=== PATIENT | female | born 1975 | race Caucasian/White ===

== ENCOUNTER 2016-05-11 01:37 | Inpatient (IN) | payer MEDICAID ==
[~2016-05-11] VITALS: Ht 165.1 cm; Wt 103.0 kg
--- NOTE | ~2016-05-11 | ECH ---
Transthoracic Echocardiography Report (TTE) Demographics Patient Name CHAVO CARMONA Date of Study 05/11/2016 F Patient Number [id number] Visit Number [id number] Date of 1975 Room Number 417 Accession Number [id number] Gender Female Age 41 year(s) Referring Anca Alarcon MD Sales Project Coordinator Vicki Herrera Physician Roscoe Tovar [facility] Physician Interpreting Ilya DINH Tax Auditor Physician Pranav Supervising Ordering Physician Anca Alarcon MD, MD/P Nurse Stress Internet Database Specialist Conclusions Contractility Score Summary At rest the following contractility abnormalities were noted: Hypokinesis of the Mid inferior, the Mid infero-lateral and the Basal inferior segments. Contractility of all other segments appeared normal. Summary Technically adequate exam. The estimated left ventricular ejection fraction is 55-60%. Mild concentric left ventricular hypertrophy. There is trivial aortic regurgitation by color Doppler. Recommendation The patient will be given the results of this study by the physician who ordered the exam. Procedure Type of Study TTE procedure:Echo Complete SF. Procedure Date Date: 05/11/2016 Start: 11:47 AM Technical Quality: Adequate visualization Indications:Chest pain, Hypertension, Diabetes and Coronary artery disease. Additional Indications:History of stent/KS Appropriate Use Criteria: 9 Height: 65 inches Weight: 227 pounds BSA: 2.09 m Rhythm: NSR HR: 73 bpm BP: 156/91 mmHg M-Mode/2D Measurements LV Diastolic Dimension: 5.01 cm LV Systolic Dimension: 3.78 cm LV Septum Diastolic: 1.02 cm LV PW Diastolic: 1.04 cm AO Root Dimension: 2.93 cm Cardiac Output: 4.4 l/min LA Dimension: 3.6 cm Cardiac Index: 2.11 l/min*m RV Diastolic Dimension: 3.51 cm LA volume index: 31 ml/m LVOT: 1.97 cm LVOT VTI: 19.79 cm RV Base: 3.3 cm LV Stroke volume: 60.29 ml RV Mid: 1.9 cm LV Stroke volume index: 28.85 ml/m TAPSE: 2.4 cm TDI-S': 11 cm/s Doppler Measurements AV Peak Velocity: 1.3 m/s MV Peak E-Wave: 0.9 m/s AV Peak Gradient: 6.76 mmHg MV Peak A-Wave: 0.79 m/s AV Mean Gradient: 3.89 mmHg MV E/A Ratio: 1.14 LVOT Peak Velocity: 0.95 m/s MV P1/2t: 60.1 msec AV Area (Continuity):2.54 cm MV Deceleration Time: 223.8 msec TR Velocity:2.52 m/s MV Area (PHT): 3.66 cm TR Gradient:25.4 mmHg PV Peak Velocity: 0.93 m/s Estimated RAP:5 mmHg PV Peak Gradient: 3.45 mmHg Estimated RVSP: 30 mmHg Estimated PASP: 30.4 mmHg E' Septal Velocity: 0.1 m/s A' Septal Velocity: 0.06 m/s E' Lateral Velocity: 0.08 m/s A' Lateral Velocity: 0.1 m/s RA Area: 10.39 cm Findings Left Ventricle The left ventricle is normal in size . Mild concentric left ventricular hypertrophy. Diastolic assessment reveals normal relaxation. Right Ventricle Normal right ventricle structure and function. Left Atrium Normal left atrial size. Right Atrium Normal right atrial size. Mitral Valve Normal mitral valve structure and function. Trivial mitral regurgitation by color Doppler. Aortic Valve Normal aortic valve structure and function. There is trivial aortic regurgitation by color Doppler. Tricuspid Valve Normal tricuspid valve structure and function. Trivial tricuspid regurgitation by color Doppler. Normal pulmonary pressures. Pulmonic Valve The pulmonic valve is not well visualized. Pericardial Effusion No evidence of pericardial effusion. Miscellaneous Visualized portions of the aortic root and ascending aorta appear normal in size. Pleural Effusion No evidence of pleural effusion. Contractility Score LV regional wall motion:(0-Non visualized 1-Normal 2-Hypokinesis 3-Akinesis 4-Dyskinesis 5-Aneurysm) Signature
[~2016-05-11 01:37] MED LIST: ASA CHILDREN'S81 MG PO; COZAAR DPS25 MG PO; CRESTOR20 MG PO; HUMALOG100 UNIT/1 SQ; IMDUR DPS60 MG PO; LANTUS100 UNITS/ SQ; LOPRESSOR DPS50 MG PO; NEXIUM 24HR20 MG PO; NITROGLYCERIN4.9 GM SL; PLAVIX75 MG PO
--- NOTE | 2016-05-11 04:56 | ER ---
ADMIT: 05/11/2016 RM/LOC: ER [facility] MR#: [id number] [address] [address] CHAVO CARMONA [address] [place] [address] Emergency Room Report SEX: F AGE: 41 : 1975 DATE: 05/11/2016 CHIEF COMPLAINT: Chest pain. HISTORY OF PRESENT ILLNESS: The patient is a 41-year-old, stage 4 chronic kidney disease, severe triple-vessel coronary artery disease patient, who did not take her antihypertensives today, developed a substernal chest pain radiating to her left arm associated with shortness of breath, diaphoresis tonight that awakened her. Took two nitros prior to arrival with improvement, but not relief. Most recent heart cath was in January 2015 that showed in- stent stenosis right coronary artery, underwent intervention through [facility], records are available. PAST MEDICAL HISTORY: ALLERGIES: NONE. MEDICATIONS: Please see nurse's MAR. ILLNESSES: Coronary artery disease, status post AMI in 2010; type 2 diabetes; hypertension; hyperlipidemia; GERD; stage 4 chronic kidney disease; diabetic neuropathy. OPERATIONS: Cardiac cath x3, most recent intervention in January 2015; right coronary artery in-stent stenosis; tubal ligation; x2. SOCIAL HISTORY: Twenty-pack year history of smoking, quit approximately 9 months ago. No illicit drugs or alcohol. FAMILY HISTORY: Negative per chart review. REVIEW OF SYSTEMS: A 12-point review of systems negative for all other systems, illnesses, or operations except as outlined above. PHYSICAL EXAMINATION: VITAL SIGNS: Temperature 98.7, pulse 111, respirations 18, BP 192/102, SaO2 of 99%. GENERAL: Moderate distress, non-diaphoretic, without jaundice or icterus. HEENT: Normocephalic. No evidence of epistaxis, rhinorrhea, or otorrhea. NECK: Supple without lymphadenopathy or thyromegaly. CHEST: Clear. Breath sounds equal without rales, rhonchi, or wheeze. HEART: Tachycardic, regular without murmur, gallop, or edema. ABDOMEN: Soft, obese, nontender, nondistended without mass or megaly. Bowel sounds hypoactive. EXTREMITIES: No evidence of Homans sign, synovitis, or dermatitis. NEURO: EOMI. PERRLA. No evidence of drift, dysarthria, or ataxia. Gait normal. MENTAL STATUS: Alert, oriented, anxious without delusions, hallucinations, or abnormal thought content. ADMIT: 05/11/2016 RM/LOC: ER [facility] MR#: [id number] [address] [address] [address] [address] Emergency Room Report SEX: F AGE: 41 : 1975 MEDICAL DECISION MAKING: The patient was evasive about why she did not take her blood pressure medications. Given aspirin 324 mg, chewed and nitroglycerin x3 with near relief of discomfort. Initiated IV nitroglycerin to run at MAP 75- 85. ACS heparin protocol. Metoprolol 50 mg p.o. Normal CBC, CMP, except glucose 273, creatinine 3.4, lipase 216. Troponin 0.132, CRP 1.19, BNP 3452. Chest x-ray negative. EKG sinus tachycardia with lateral ST depression, consistent with ischemia and unchanged from February 04, 2016. Discussed case with Dr. Brush, who agreed and gave orders to nursing staff. Due to the patient's presentation and interventions, 30 minutes of critical care is warranted. DIAGNOSES: 1. Unstable angina associated with non-ST elevated myocardial infarction versus troponin leak from chronic kidney disease. 2. Chronic kidney disease, stage IV. 3. Hypertension, noncompliant. 4. Hyperlipidemia. 5. Type 2 diabetes, poorly controlled. RECOMMENDATION: Admit to PCU. CONDITION: Improved. Patient is a full code. Tai Dominguez MD/ wallace JOB #: [id number] CC: Tai Dominguez MD, Attending Physician Guy Malhotra MD, Family Physician Guy Malhotra MD
[2016-05-13] MEDS ORDERED: LASIX DPS20 MG PO (09:55)
[2016-05-13] MEDS ORDERED: CARVEDILOL25 MG PO (09:57)
[2016-05-13] MEDS ORDERED: APRESOLINE-DPS50 MG PO (09:58)
[2016-05-13] MEDS ORDERED: NORVASC DPS10 MG PO (09:58)
[2016-05-13] MEDS ORDERED: SOD BICARB TAB650 MG PO (09:58)
[2016-05-13] MEDS ORDERED: NOVOLOG100 UNIT/2 SQ (10:00)
--- NOTE | 2016-05-16 08:33 | CO ---
ADMIT: 05/11/2016 RM/LOC: 417 [facility] MR#: [id number] [address] [address] KRISTINE CHAVO Pinky [address] [place] [address] Consultation SEX: F AGE: 41 : 1975 DATE OF CONSULTATION: 05/11/2016 ATTENDING PHYSICIAN: Guy Malhotra CONSULTING PHYSICIAN: Tatiana Mchugh MD REASON FOR CONSULT: Chronic kidney disease stage 4/acute kidney injury. HISTORY OF PRESENT ILLNESS: The patient is a 41-year-old noncompliant female whom I have seen previously during her hospitalization in January last year when she was admitted with chest pain. Her baseline serum creatinine at that time was around 2.5. She has severe advanced coronary artery disease, and she has not had any interventions recently because of her advanced chronic kidney disease. The cause of her CKD is diabetic nephropathy. She has been noncompliant with her medications as well as her doctors visits. She presented to the hospital yesterday with chief complaint of chest pain. She was noted to be in hypertensive urgency and is currently on IV nitroglycerin. It is unclear if she has been taking her medications regularly. She has had this sharp, substernal chest pain that has been radiating to her left arm. She has been having some diaphoresis as well. She tried sublingual nitroglycerin that did not help her chest pain. Denies any associated dyspnea or nausea or headaches. No visual problems. No urinary complaints. No abdominal complaints. She did have some loose stools about a week ago. She reports an episode of upper respiratory tract infection about a week ago that has now resolved. Appetite has been fair. REVIEW OF SYSTEMS: A complete review of systems is negative in detail except as mentioned in history of present illness above. PAST MEDICAL HISTORY: 1. Uncontrolled hypertension. 2. Uncontrolled type 2 diabetes mellitus. 3. Coronary artery disease. 4. Obesity. 5. CKD stage 4 secondary to diabetic nephropathy. ALLERGIES: NO KNOWN DRUG ALLERGIES. MEDICATIONS: Reviewed in the chart. SOCIAL HISTORY: She lives at home. She is unemployed at this time. Used to manage a convenience store previously. She quit smoking last year. No alcohol or recreational drug use. FAMILY HISTORY: No family history of chronic kidney disease or renal replacement therapy. PHYSICAL EXAMINATION: VITAL SIGNS: Temperature 97.7 Fahrenheit, pulse 97, blood pressure 176/95, and saturating 96% on room air. ADMIT: 05/11/2016 RM/LOC: 417 [facility] MR#: [id number] [address] [address] [place] [address] Consultation SEX: F AGE: 41 : 1975 GENERAL: She is comfortable in no acute distress. HEENT: Head is nontraumatic and normocephalic. No conjunctival pallor. Oral mucosa moist. NECK: Supple. No JVD. CHEST: With bibasilar wheezes. CVS: Regular rhythm. S1 and S2. No rubs, murmurs, or gallops. ABDOMEN: Soft, obese. EXTREMITIES: No edema, skin rash, or nodules. NEUROLOGIC: Alert, awake, and oriented x3. She is able to move all her extremities. MUSCULOSKELETAL: Major joints within normal limits. Range of motion within normal limits. PSYCHIATRIC: Affect and memory are within normal limits. She gets somewhat defensive when encountered about her noncompliance. LABORATORY DATA: Reviewed. BMP with sodium 138, potassium 4.8, CO2 is 18, creatinine is 3.4, up from a baseline of around 2.5. Hemoglobin 12.4. Calcium 8.3, albumin 2.7. Troponin was mildly elevated at 0.405. ASSESSMENT/PLAN: 1. Acute kidney injury and chronic kidney disease stage 4 - this could be secondary to disease progression considering her uncontrolled hypertension and proteinuria. I discussed that her uncontrolled hypertension and proteinuria are risk factors for accelerated disease progression. I also discussed different modalities of renal replacement therapy as well as kidney transplant with her today. I also discussed my concerns that she would be a poor candidate for home dialysis at this time considering her noncompliance. I encouraged medication compliance. I will check urine studies today and also monitor her kidney function closely. I would focus on blood pressure control for the time being. 2. Hypertension - dietary sodium restriction. Start amlodipine. Change her metoprolol to Coreg if okay with Cardiology. I would hold off on renin angiotensin blockade at this time considering her decreased kidney function. It is okay to use hydralazine if needed further. We will try to wean her off the nitroglycerin drip as blood pressure improved. 3. Metabolic acidosis - start sodium bicarbonate 650 mg p.o. b.i.d. Thank you for this consultation and allowing me the opportunity participate in this patient's care. Please do not hesitate to contact me with any questions. Tatiana Mchugh MD/ wallace JOB #: [id number] CC: Guy Malhotra, Attending Physician Guy Malhotra, Family Physician
--- NOTE | 2016-05-17 08:48 | HP ---
ADMIT: 05/11/2016 RM/LOC: 417 [facility] MR#: [id number] [address] [address] RACHAEL CARMONA [address] [place] [address] History and Physical SEX: F AGE: 41 : 1975 DATE OF SERVICE: CHIEF COMPLAINT: Chest pain. HISTORY OF PRESENT ILLNESS: This is a 41-year-old female with history of coronary artery disease, status post CABG x3; diabetes mellitus, uncontrolled; stage 4-5 chronic kidney disease; severe noncompliance, who presents to the Emergency Department with the above complaints. She states she did not take her antihypertensives on the day of admission. She developed substernal chest pain, radiating to her left arm associated with shortness of breath and diaphoresis. This will occur in the middle of the night. This was anginal equivalent. She took 2 nitros and she was taking them all day yesterday. It did help improve her symptoms but no relief. She has followed with [facility] in the past. We have tried to get or established with [facility]. She has missed multiple appointments including outpatient stress test after her last presentation to the hospital for chest pain. She missed multiple appointments with myself as well as Nephrology. The patient states that today she would only be able to stay till about three or four she has to go get her son because she has nobody else to watch it. She currently says she is chest pain-free. PAST MEDICAL HISTORY: 1. Coronary artery disease status post stents x3. 2. Occlusion of right coronary. 3. Diabetes mellitus, type 2, uncontrolled. 4. Diabetic nephropathy. 5. Diabetic retinopathy. 6. Diabetic neuropathy. 7. Chronic kidney disease, stage IV-V. 8. Generalized anxiety. 9. Gastroesophageal reflux disease. 10.COPD with extensive history of nicotine use. 11.Depression. 12.Chronic neck pain. 13.Hyperlipidemia. 14.Hypertension. 15.Noncompliance. SURGICAL HISTORY: in 2005. HOME MEDICATIONS: Please refer to hospital record. ALLERGIES: NO KNOWN DRUG ALLERGIES. FAMILY HISTORY: Positive coronary artery disease in her mother. Lung cancer in her father. SOCIAL HISTORY: The patient is unemployed. Has one son. Former smoker, ADMIT: 05/11/2016 RM/LOC: 417 [facility] MR#: [id number] [address] [address] RACHAEL CARMONA [address] [place] [address] History and Physical SEX: F AGE: 41 : 1975 smoked half pack for more than 20 years. She consumes alcohol on a rare basis. Sedentary lifestyle. No other drug use. REVIEW OF SYSTEMS: A 10-point review of systems obtained, per HPI, otherwise negative. PHYSICAL EXAMINATION: VITAL SIGNS: Blood pressure 176/95, pulse 97, respirations 16, temperature 97.7, 96% on room air. GENERAL: Alert and oriented x3. No acute distress. She is actually sleeping when I walked into the room. HEENT: Pupils equal, round, and reactive. Extraocular intact. Throat clear. Trachea midline. HEART: Regular rate and rhythm. No murmurs. LUNGS: Clear to auscultation bilaterally. ABDOMEN: Soft, nontender, and nondistended. No organomegaly. EXTREMITIES: Without any significant edema. 2+ pulses. LABORATORY DATA: CBC normal limits. CMP with a glucose of 273, creatinine of 3.4. CO2 of 18. INR normal. CK and CK-MB normal x2. Troponin 0.386 and 0.312 and subsequently 0.386. ProBNP 3452. CRP 1.19. Chest x-ray, negative. EKG without any acute ischemic changes. ASSESSMENT AND PLAN: A 41-year-old with: 1. Chest pain, anginal equivalent. 2. Coronary artery disease, extensive. 3. Hypertension, noncompliance with medication. 4. Diabetes mellitus. Too uncontrolled, noncompliance. 5. Chronic kidney disease, stage IV-V with slightly elevated creatinine, baseline 2.8. 6. Diabetic retinopathy. 7. Diabetic neuropathy. 8. Diabetic retinopathy. 9. Obesity. 10.Hyperlipidemia. 11.Noncompliance. 12.Previous smoking history. 13.Chronic obstructive pulmonary disease. PLAN: The patient discussed with Zaira discussed the patient with Cardiology ADMIT: 05/11/2016 RM/LOC: 417 [facility] MR#: [id number] [address] [address] KRISTINE RACHAEL F [address] [place] [address] History and Physical SEX: F AGE: 41 : 1975 they will evaluate the patient. She is currently on heparin and nitro. We will try to control her blood pressures better with IV hydralazine as well as start home medications. Discussed at length with Rachael today her noncompliance as well as her missed followup appointments with Cardiology, myself, Nephrology. We discussed that it is very important that she take her medications as prescribed and follow up as indicated to prevent hospitalizations. Discussed it is important that we finished her full workup before she leaves. She states that she may leave at 3-4. I did tell her that if she decides to do so against cardiology's recommendations, and she will need to sign out against medical advice. She understands this. Highly recommended that she stay for further workup as this could be life threatening. Guy Malhotra MD/ wallace JOB #: [id number] CC: Guy Malhotra, Attending Physician Guy Malhotra, Family Physician
--- NOTE | 2016-05-20 13:28 | CO ---
ADMIT: 05/11/2016 RM/LOC: 417 [facility] MR#: [id number] [address] [address] CHAVO COMER [address] [place] [address] Consultation SEX: F AGE: 41 : 1975 DATE OF CONSULTATION: 05/11/2016 ATTENDING PHYSICIAN: Guy Malhotra CONSULTING PHYSICIAN: Madai March MD REASON FOR CONSULTATION: Chest pain. HISTORY OF PRESENT ILLNESS: Ms. Comer is a 41-year-old white female who we were asked to consult on at the request of Dr. Malhotra for the problem of chest pain and abnormal troponin. She is a patient who has not followed with us in over 5 years. She presented yesterday with some chest discomfort. Normally she has angina that resolves with sublingual nitroglycerin spray. Yesterday during the day, she had an episode that required 3 sprays, made her diaphoretic. She had a second spell in the morning at 1:00 that required another 3 sprays of sublingual nitroglycerin again that did not resolve her pain so she came in to the ER. Was noted to be hypertensive and started on a nitroglycerin drip. Since she has been here, she has had no more pressure or tightness. Her breathing remains okay. She states she has been tobacco free for 7 months. PAST MEDICAL HISTORY: Includes: 1. Coronary artery disease with PCI of unknown arteries. 2. Diabetes. 3. Hypertension. 4. Chronic renal insufficiency. CURRENT MEDICATIONS: At the time of consultation include: 1. Nitroglycerin drip. 2. Furosemide 40 mg a day. 3. Crestor 20 mg at bedtime. 4. Clopidogrel 75 a day. 5. Isosorbide 30 mg a day. 6. Metoprolol 50 mg twice a day. 7. Lantus as directed. 8. Humalog and aspirin as directed. ALLERGIES: NONE KNOWN. FAMILY HISTORY: There is no family history of premature coronary disease. SOCIAL HISTORY: She has one child who is 11 years old. Former tobacco user who quit 7 months ago. REVIEW OF SYSTEMS: A full 12-point review of systems was obtained and deemed to be negative except for the pertinently dictated positives in the HPI. PHYSICAL EXAMINATION: VITAL SIGNS: Her blood pressure is 176/95 with a pulse in the 90s, her temp is 97.7, her weight today is 227 pounds. ADMIT: 05/11/2016 RM/LOC: 417 [facility] MR#: [id number] [address] [address] CHAVO COMER [facility] [place] [place] [address] Consultation SEX: F AGE: 41 : 1975 GENERAL: She is a pleasant, well-nourished, well-developed white female, in no acute distress. Alert and oriented x3. NECK: Shows brisk carotid upstrokes. No JVD or bruit. CHEST: Clear. HEART: Regular. ABDOMEN: Soft. EXTREMITIES: Show no cyanosis, clubbing, or edema. MUSCULOSKELETAL: Normal. NEUROLOGIC: Normal. SKIN: [place], warm, and dry. LABORATORY AND ANCILLARY DATA: Notes EKG with nothing to suggest ST or T-wave changes. We were able to find out catheterization from 2014 at [facility] revealing 30% proximal and mid LAD disease, 30% proximal, 40% midcircumflex lesion, 60% OM and a 90% proximal RCA with a drug-eluting stent to the right coronary artery. Creatinine today of 3.4. CK is 91, MB 1.6, troponin 0.405 with 0.312 on admission. White blood cell count is 9.2, hemoglobin 12.4, and platelet count of 328. ASSESSMENT AND PLAN: 1. Angina. 2. Hypertension. 3. Coronary artery disease with history of PCI to the RCA, January 2015. 4. Chronic kidney disease with acute exacerbation. 5. Diabetes. We will wean her nitroglycerin drip off and monitor response. Troponin has essentially not changed since January 2015. She was supposed to have an outpatient stress test, but did not show up for that. Suspect she has a chronically elevated troponin due to her chronic renal insufficiency. We will check an echo at this point in time and consider a stress prior to discharge. No catheterization currently as she is chest pain free and her troponins are stable and she has worsening stage 4 kidney disease. Thank you for the consultation. Madai March MD/ wallace JOB #: [id number] CC: Guy Malhotra, Attending Physician Guy Malhotra, Family Physician
--- NOTE | 2016-06-14 08:07 | DS ---
ADMIT: 05/11/2016 RM/LOC: 417 [facility] MR#: [id number] [address] [address] CHAVO CARMONA [address] [place] [address] General Discharge Summary SEX: F AGE: 41 : 1975 ADMISSION DATE: 05/11/2016 DISCHARGE DATE: 05/12/2016 FINAL DIAGNOSES: 1. Chest pain, anginal equivalent. 2. Coronary artery disease, extensive. 3. Hypertension, noncompliance of medication. 4. Diabetes mellitus, uncontrolled with noncompliance. 5. Chronic kidney disease, stage 4-5 with slightly elevated creatinine, acute kidney injury. 6. Diabetic retinopathy. 7. Diabetic neuropathy. 8. Diabetic nephropathy. 9. Obesity. 10.Hyperlipidemia. 11.Noncompliant with all medical treatment and follow ups. 12.Previous smoking history. 13.Chronic obstructive pulmonary disease. 14.Chronic anemia of kidney disease. 15.Concentric left ventricular hypertrophy, mild. 16.Mild aortic regurgitation. CONSULTATIONS: Include Dr. Mchugh of Nephrology and Dr. March of Cardiology. LABS AND IMAGING: Please refer to hospital record. REASON FOR ADMISSION: Please refer to dictated H and P. Briefly, this is a 41-year-old female, who established care with me not too long ago, with significant medical problems and many progressed secondary to her noncompliance with her medical treatment, presented to the emergency department with complaints of abdominal pain. She has CABG x3. She had missed previous followups with Cardiology locally. Previously, was followed in [place]. We were asked to admit for further workup and management of her chest pain. The patient was admitted to telemetry. Routine orders. I did consult cardiology with Dr. March as well as Nephrology, I to tried to re-establish care with Dr. Mchugh. Both of these physicians discussed extensively controlling her hypertension and other medical problems as her diseases are likely progressing. Cardiology had previously recommended an outpatient stress test, but the patient did not show up for that. I suspect that she chronically has elevated troponin secondary to renal insufficiency. She did undergo echocardiogram, which showed ejection fraction of 55%-60%, mild concentric left ventricular hypertrophy. As her enzymes remain stable, there were no changes on her echo. It was recommended that patient followup with Cardiology the following week to set up outpatient stress test. There were no other major events during the hospitalization. ADMIT: 05/11/2016 RM/LOC: 417 [facility] MR#: [id number] [address] [address] [place] [address] General Discharge Summary SEX: F AGE: 41 : 1975 DISCHARGE MEDICATIONS: Please refer to hospital record. DISCHARGE INSTRUCTIONS: The patient was instructed to take medications as prescribed. Stressed the importance of her taking all of her medications to help limit the progression of her disease. Discussed that she is high risk to have repeat acute events including heart attack, strokes, and progression to dialysis. Instructed her on the importance of followup with physicians as she has missed multiple appointments in the area and in town and that she will likely not have specialist to go to any longer if she continues to do this. The patient voiced understanding. Discharge activities took approximately 35 minutes. Guy Malhotra MD/ wallace JOB #: [id number] CC: Guy Malhotra MD, Attending Physician Guy Malhotra MD, Family Physician
[2016-08-27] MEDS ORDERED: NITROSTAT0.4 MG SL (13:57)
[2016-08-27] MEDS ORDERED: MONTELUKAST SOD10 MG PO (13:58)
[2016-08-27] MEDS ORDERED: CETIRIZINE HCL5 MG PO (13:59)
[2016-08-27] MEDS ORDERED: PROVENTIL HFA6.7 GM IH (14:00)
[2016-11-07] MEDS ORDERED: LASIX DPS20 MG PO (13:39)
[2016-11-07] MEDS ORDERED: NITROSTAT0.4 MG SL (13:39)
[2016-11-07] MEDS ORDERED: CRESTOR10 MG PO (13:40)
[2016-11-07] MEDS ORDERED: WELLBUTRIN SR150 M1 PO (13:40)
[2016-11-07] MEDS ORDERED: APRESOLINE-DPS50 MG PO (13:40)
[2016-11-07] MEDS ORDERED: MONTELUKAST SOD10 MG PO (13:40)
[2016-11-07] MEDS ORDERED: ISOSORBIDE MONO60 MG PO (13:41)
[2016-11-07] MEDS ORDERED: CETIRIZINE HCL5 MG PO (13:41)
[2016-11-07] MEDS ORDERED: PLAVIX75 MG PO (13:41)
[2016-11-07] MEDS ORDERED: CARVEDILOL25 MG PO (13:41)
[2016-11-07] MEDS ORDERED: LANTUS100 UNITS/ SQ (13:42)
[2016-11-07] MEDS ORDERED: AMBIEN DPS10 MG PO (13:42)
[2016-11-07] MEDS ORDERED: HUMALOG100 UNIT/1 SQ (13:42)
[2016-11-07] MEDS ORDERED: ASPIR 8181 MG PO (13:43)
[2016-11-07] MEDS ORDERED: NEXIUM20 M1 PO (13:43)
[2016-11-07] MEDS ORDERED: IRON325 M1 PO (13:43)
[2016-11-07] MEDS ORDERED: PROVENTIL HFA6.7 GM IH (13:43)
== END 2016-05-12 13:27 | disposition home or self-care (01) | DRG 303 ==
LOC: ER 01:37 → 4PCU 03:30
PROVIDERS: ADMIT Family Medicine
DX: I25.119 Atherosclerotic heart disease of native coronary artery with unspecified angina pectoris (principal); E87.2 Acidosis; N17.9 Acute kidney failure, unspecified; E11.21 Type 2 diabetes mellitus with diabetic nephropathy; N18.4 Chronic kidney disease, stage 4 (severe); E11.22 Type 2 diabetes mellitus with diabetic chronic kidney disease; E11.65 Type 2 diabetes mellitus with hyperglycemia; E11.319 Type 2 diabetes mellitus with unspecified diabetic retinopathy without macular edema; E11.40 Type 2 diabetes mellitus with diabetic neuropathy, unspecified; F41.1 Generalized anxiety disorder; I12.9 Hypertensive chronic kidney disease with stage 1 through stage 4 chronic kidney disease, or unspecified chronic kidney disease; E78.5 Hyperlipidemia, unspecified; E66.9 Obesity, unspecified; J44.9 Chronic obstructive pulmonary disease, unspecified; M54.2 Cervicalgia; G89.29 Other chronic pain; K21.9 Gastro-esophageal reflux disease without esophagitis; I25.2 Old myocardial infarction; Z87.891 Personal history of nicotine dependence; Z91.14 Patient's other noncompliance with medication regimen; Z95.5 Presence of coronary angioplasty implant and graft; Z95.1 Presence of aortocoronary bypass graft; Z82.49 Family history of ischemic heart disease and other diseases of the circulatory system; Z68.37 Body mass index [BMI] 37.0-37.9, adult

== ENCOUNTER 2016-08-25 17:01 | Inpatient (IN) | payer MEDICAID ==
[~2016-08-25] VITALS: Ht 165.1 cm; Wt 105.4 kg
--- NOTE | ~2016-08-25 | FD ---
ADMIT: 08/25/2016 RM/LOC: 408 [facility] MR#: [id number] [address] [address] RACHAEL CARMONA [address] [place] [address] Final Diagnosis SEX: F AGE: 41 : 1975 ADMISSION DATE: 08/25/2016 DISCHARGE DATE: 08/26/2016 FINAL DIAGNOSES: 1. Coronary artery disease, status post three stents. 2. Insulin-dependent diabetes mellitus poorly controlled. 3. Chronic elevated troponin. 4. COPD (chronic obstructive pulmonary disease). 5. Hyperlipidemia. 6. Chronic kidney disease stage 4. 7. Severe noncompliance. Rachael was admitted on 08/25/2016 with complaints of chest pressure and shortness of breath. It was noted that her troponin was slightly elevated to 0.086. She does have a history of chronic elevated troponin up to 0.3. Her BNP was also noted to be elevated up to 12,000. She had a V/Q scan that was showed low probability for a pulmonary embolism. She was given IV Lasix and diuresed about 1.8 L and felt much better. Cardiology did come and see her and felt that she was okay to go home since she did have a followup with her normal pie icer machine in [place] in a week for a cardiac stress test. Lauryn Becker, Resident / Guy Malhotra MD / lexy JOB #: [id number] CC: Guy Malhotra MD, Attending Physician Guy Malhotra MD, Family Physician
--- NOTE | ~2016-08-25 | ECH ---
Transthoracic Echocardiography Report (TTE) Demographics Patient Name CHAVO CARMONA Date of Study 08/26/2016 F Patient Number [id number] Visit Number [id number] Date of 1975 Room Number 408 Accession Number [id number] Gender Female Age 41 year(s) Referring Anca Alarcon MD Pumper Gauger Apprentice Pilar Caballero [facility] Physician Roscoe Tovar Physician Interpreting Ilya DINH Special Diet Cook Physician Pranav Supervising Ordering Physician Roscoe Tovar MD/DENIS Nurse Stress Public Relations Assistant Conclusions Contractility Score Summary At rest the following contractility abnormalities were noted: Hypokinesis of the Apical inferior, the Apical septal, the Apical lateral and the Apical cap segments. Contractility of all other segments appeared normal. Summary Technically fair exam. The estimated left ventricular ejection fraction is 50-55%. Mild segmental wall motion abnormalities. Mild to moderate left ventricular hypertrophy. The left atrium is moderately dilated by LA volume index measurement. No significant valvular abnormalities. Recommendation The patient will be given the results of this study by the physician who ordered the exam. Procedure Type of Study TTE procedure:Echo Complete SF. Procedure Date Date: 08/26/2016 Start: 10:21 AM Technical Quality: Fair due to body habitus. Indications:Chest pain, Congestive heart failure and Coronary artery disease. Appropriate Use Criteria: 9 Height: 65 inches Weight: 232 pounds BSA: 2.11 m Rhythm: Within normal limits HR: 90 bpm BP: 155/88 mmHg M-Mode/2D Measurements LV Diastolic Dimension: 5.24 cm LV Systolic Dimension: 3.52 cm LV Septum Diastolic: 1.47 cm LV PW Diastolic: 1 cm AO Root Dimension: 2.28 cm Cardiac Output: 6.37 l/min LA Dimension: 3.94 cm Cardiac Index: 3.02 l/min*m RV Diastolic Dimension: 2.78 cm LA volume index: 42 ml/m LVOT: 1.91 cm LVOT VTI: 24.72 cm RV Base: 3.77 cm LV Stroke volume: 70.79 ml RV Mid: 2.54 cm LV Stroke volume index: 33.55 ml/m TAPSE: 26 cm Doppler Measurements AV Peak Velocity: 1.5 m/s MV Peak E-Wave: 1.3 m/s AV Peak Gradient: 9 mmHg MV Peak A-Wave: 0.94 m/s AV Mean Gradient: 4.04 mmHg MV E/A Ratio: 1.39 LVOT Peak Velocity: 1.22 m/s MV P1/2t: 49.5 msec AV Area (Continuity):2.79 cm MV Deceleration Time: 170.6 msec TR Velocity:2.46 m/s MV Area (PHT): 4.45 cm TR Gradient:24.14 mmHg PV Peak Velocity: 0.95 m/s Estimated RAP:3 mmHg PV Peak Gradient: 3.64 mmHg Estimated RVSP: 27 mmHg Estimated PASP: 27.14 mmHg RA Area: 17.96 cm Findings Left Ventricle The left ventricle is normal in size . Mild to moderate left ventricular hypertrophy. Diastolic assessment reveals normal relaxation. Right Ventricle Normal right ventricle structure and function. Left Atrium The left atrium is moderately dilated by LA volume index measurement. Right Atrium Normal right atrial size. Mitral Valve Normal mitral valve structure and function. Aortic Valve The aortic valve is mildly sclerotic. Tricuspid Valve Normal tricuspid valve structure and function. Mild tricuspid regurgitation by color Doppler. Pulmonic Valve Normal pulmonic valve structure and function. Pericardial Effusion No evidence of pericardial effusion. Miscellaneous Visualized portions of the aortic root and ascending aorta appear normal in size. Pleural Effusion No evidence of pleural effusion. Contractility Score LV regional wall motion:(0-Non visualized 1-Normal 2-Hypokinesis 3-Akinesis 4-Dyskinesis 5-Aneurysm) Signature
[~2016-08-25 17:01] MED LIST changes: +APRESOLINE-DPS50 MG PO; +CARVEDILOL25 MG PO; +LASIX DPS20 MG PO; +NORVASC DPS10 MG PO; +NOVOLOG100 UNIT/2 SQ; +SOD BICARB TAB650 MG PO
--- NOTE | 2016-08-26 08:30 | HP ---
ADMIT: 08/25/2016 RM/LOC: 408 [facility] MR#: [id number] [address] [address] CHAVO CARMONA [address] [place] [address] History and Physical SEX: F AGE: 41 : 1975 DATE OF SERVICE: CHIEF COMPLAINT: Shortness of breath and chest pain x1 month. HISTORY OF PRESENT ILLNESS: This is a 41-year-old female with complex past medical history, including coronary artery disease, status post stenting x3; insulin-dependent diabetes mellitus; chronic kidney disease, stage 4; COPD; hyperlipidemia; and obesity along with severe noncompliance, who has admitted with chest pain and shortness of breath. The patient reports the chest pain has been on and off for about a month. She describes it as a pressure that does not radiate anywhere, but does get worse with exertion. She does have associated shortness of breath, but no diaphoresis. The shortness of breath has been continuous and gradually worsening to the point that very little activity makes her severely short of breath, and she is no longer able to lay flat at night. She denies any cough, fever, or lower extremity swelling, but does feel like her abdomen is bloated. The patient came to the Emergency Department today because she has had worsening chest pain for the past 24 hours and has been requiring nitroglycerin every hour for the last day. Her chest pain again is described as a pressure that does improve with the nitroglycerin. In the Emergency Department, her labs revealed a BNP of 12,261, and chest x-ray did show pulmonary edema, slightly elevated troponin and a creatinine of 3.6. Her D-dimer was also elevated to 0.79, but the CTA was not done due to her chronic kidney disease. Her vital signs have been stable and she has not required any O2 to keep her saturations up. She is given IV Solu-Medrol for baby aspirin and sublingual nitroglycerin x3, done in the ER. She does state that the chest pain has improved, but she is still very short of breath and unable to lay back. PAST MEDICAL HISTORY: 1. Coronary artery disease, status post 3 stents. She follows with a grip in [place]. 2. Insulin-dependent diabetes mellitus, poorly controlled. 3. COPD. 4. Hyperlipidemia. 5. Chronic kidney disease, stage 4. 6. Severe noncompliance. Her last echo was done in April of 2016, which showed an ejection fraction of 55% to 60% and left ventricular hypertrophy. PAST SURGICAL HISTORY: Coronary stents x3, and 2 C-sections. MEDICATIONS: See home med list. ALLERGIES: NONE. SOCIAL HISTORY: She denies any current tobacco use, but did smoke half a pack a day for more than 20 years. She quit a few years ago. She drinks socially, but does not use any illegal drug. She is unemployed and sedentary. She does live at home with 1 of her children. ADMIT: 08/25/2016 RM/LOC: 408 [facility] MR#: [id number] [address] [place] [address] [address] [place] [address] History and Physical SEX: F AGE: 41 : 1975 FAMILY HISTORY: Significant for coronary artery disease in her mom and lung cancer in her dad. REVIEW OF SYSTEMS: A 10-point review of systems was reviewed and negative other than that stated above in the HPI. PHYSICAL EXAMINATION: VITAL SIGNS: Blood pressure 151/85, pulse 97, respirations 20, temp 97.7, saturating 98% on room air. GENERAL: She is alert and oriented x3. She does appear to be in some distress as she is sitting straight up in bed trying to catch her breath. HEART: Regular rate and rhythm. No murmur. No JVD. LUNGS: Crackles are heard at the bilateral bases. ABDOMEN: Obese, soft, nontender, nondistended with positive bowel sounds. EXTREMITIES: No edema. LABORATORY DATA AND IMAGING: Sodium 132, potassium 4.6, creatinine 3.6, glucose 474, GFR is 15, D-dimer 0.79, magnesium 2.2, BNP 12,261, CK 91, MB 0.9, troponin 0.056. White count 11.8, hemoglobin 7.5, platelets 369. EKG showed no ST elevation or ST depression. Chest x-ray showed bilateral pleural effusions. ASSESSMENT AND PLAN: 1. Acute congestive heart failure. Plan for an echo tomorrow morning. Strict I and Os and daily weights. We will also give her 80 mg of IV Lasix b.i.d. and have Cardiology see her in the morning. 2. Profound symptomatic anemia. She has been typed and crossed. We will give her 1 unit of packed red blood cells tonight. We will go ahead and repeat her hemoglobin in the morning. 3. Nqjdv-in-kucbavh kidney disease. We will plan to consult Nephrology ADMIT: 08/25/2016 RM/LOC: 408 [facility] MR#: [id number] [facility] [address] [address] CHAVO CARMONA Pink[address] [place] [address] History and Physical SEX: F AGE: 41 : 1975 tomorrow. We will have to monitor her creatinine with the Lasix. 4. Angina. 5. Elevated troponin. We will repeat her troponin every 6 hours for 3 sets. 6. Uncontrolled diabetes mellitus. We will plan to start low-dose sliding scale insulin with blood sugar blood checks before every meal and at bedtime. 7. Obesity. 8. Gastroesophageal reflux disease. We started her on Protonix. 9. History of coronary artery disease, status post stents. 10.Elevated D-dimer. We will plan to do a V/Q scan in the morning. I am going to start her on a heparin drip tonight per PE protocol. 11.Hyperglycemia. Lauryn Becker DO Resident / Guy Malhotra MD / modl JOB #: [id number] CC: Guy Malhotra, Attending Physician Guy Malhotra, Family Physician
--- NOTE | 2016-08-26 10:56 | ER ---
ADMIT: 08/25/2016 RM/LOC: 408 [facility] MR#: [id number] [id number] [place], [place] [address] CHAVO CARMONA [address] [place] [address] Emergency Room Report SEX: F AGE: 41 : 1975 DATE: 08/25/2016 CHIEF COMPLAINT: Chest pain and shortness of breath. HISTORY OF PRESENT ILLNESS: The patient is a 41-year-old female with history of coronary artery disease, insulin-dependent diabetes, and COPD, who presents with complaints of increasing shortness of breath over the past several days and chest pain, which has required multiple doses of nitroglycerin for the past nearly 24 hours. She does have a history of angina and does take nitroglycerin occasionally, but states that over the past 24 hours she has had to take several doses of nitroglycerin to relieve her pain, but has not helped with her shortness of breath. She is not actually diagnosed with CHF that she has been told. The pain in her chest is in the center of her chest, it is occasionally sharp in nature with also some heaviness. She denies any new leg swelling or calf pain. REVIEW OF SYSTEMS: Ten-point review of systems done otherwise negative except as in HPI. PAST MEDICAL HISTORY: Significant for coronary artery disease, insulin- dependent diabetes, hypertension, COPD, and hyperlipidemia. PREVIOUS PROCEDURES: She has had cardiac stents x3. MEDICATIONS: See nurse's note. She is on aspirin and clopidogrel. ALLERGIES: NO KNOWN DRUG ALLERGIES. SOCIAL HISTORY: Does smoke. Denies any drug or alcohol use. PHYSICAL EXAMINATION: GENERAL: The patient is alert, oriented, in no distress. HEAD: Atraumatic. NECK: Supple. Airway is patent. HEART: Regular rate and rhythm. LUNGS: She has slightly decreased breath sounds at bilateral bases. No rhonchi or wheezes are noted. ABDOMEN: Obese, soft, nontender. EXTREMITIES: Lower extremities show no pedal edema or calf tenderness. DIAGNOSTIC DATA: EKG shows sinus rhythm, rate of 93, no signs of ST-elevation or acute MIs compared to a previous EKG and looks unchanged. LABORATORY DATA: White count of 11.8 and hemoglobin of 7.5. Sodium 132, carbon dioxide 21, BUN 31, glucose 474, creatinine 3.6, troponin 0.056. BNP . Chest x-ray shows CHF. EMERGENCY DEPARTMENT COURSE: The patient did have our cardiac routine done while in the Emergency Department. With her significant history of coronary ADMIT: 08/25/2016 RM/LOC: 408 [facility] MR#: [id number] [address] [address] KRISTINE CHAVO [address] [place] [address] Emergency Room Report SEX: F AGE: 41 : 1975 artery disease and complaints of chest pain. I believe the patient does warrant admission for further cardiac workup at this time. It also appears that she has had some signs of CHF, which she has not been diagnosed with in the past with an elevated BUN and a chest x-ray, which was concerning for CHF. It is complicated the fact that she has an elevated creatinine at this time. She did have a slightly elevated troponin, which will be trended while she is in the hospital. I spoke to Dr. Leach, who is on for the patient's primary care physician, Dr. Malhotra, who will be writing admission orders. The patient is admitted in stable condition. DIAGNOSES: 1. Chest pain. 2. Shortness of breath. 3. Acute on chronic kidney disease. 4. Insulin-dependent diabetes. 5. Anemia. 6. Congestive heart failure. Anish Sims MD/ wallace JOB #: [id number] CC: Guy Malhotra MD, Attending Physician Guy Malhotra MD, Family Physician
[2016-08-27] MEDS ORDERED: NITROSTAT0.4 MG SL (13:57)
[2016-08-27] MEDS ORDERED: MONTELUKAST SOD10 MG PO (13:58)
[2016-08-27] MEDS ORDERED: CETIRIZINE HCL5 MG PO (13:59)
[2016-08-27] MEDS ORDERED: PROVENTIL HFA6.7 GM IH (14:00)
--- NOTE | 2016-09-08 15:33 | CO ---
ADMIT: 08/25/2016 RM/LOC: 408 [facility] MR#: [id number] [id number] [place], [place] [address] RACHAEL CARMONA [address] [place] [address] Consultation SEX: F AGE: 41 : 1975 DATE OF CONSULTATION: 08/26/2016 ATTENDING PHYSICIAN: Guy Malhotra CONSULTING PHYSICIAN: Madai March MD CONSULTING PHYSICIAN: Lauryn Becker DO REASON FOR CONSULT: Chest pain and shortness of breath. This is Bety Salazar RN, scribing for Dr. Dorian March MD HISTORY OF PRESENT ILLNESS: Rachael is a pleasant 41-year-old female, I have been asked to see in Cardiology consultation by Dr. Lauryn Becker for chest pain and shortness of breath. In the past, she has followed with Dr. Mahajan at [facility]. She reports currently, she is following Dr. West through [facility] in [employer] and is actually scheduled next week for a stress test with him. She presented to [facility] with complaints of increased shortness of breath and chest discomfort. She describes severe shortness of breath as her biggest complaint and orthopnea. She states that she had to sit straight up to breathe. Her weight is unchanged from June. She also describes some chest discomfort this morning that was a burning type pain that radiated to her neck and arms. She has chronically elevated troponin looking back her baseline troponin is normally around 0.3. Her peak troponin on admit is 0.086 with her chronic kidney disease with creatinine of 3.6. Total cholesterol was 118 with an LDL of 56. CK and MB were normal. Her proBNP was little elevated at 12,000. Currently, she denies any chest pain or shortness of breath. She states that her symptoms have improved. Her D-dimer was mildly elevated. She did have V/Q scan done due to elevated creatinine. Unable to do CTA. She had low probability for PE. She is on a heparin drip currently. Vital signs are stable. PAST MEDICAL HISTORY: Diabetes, hypertension, history of coronary artery disease. Last echocardiogram showed EF of 55% in April, history of former tobacco use, old FL, and chronic kidney disease stage IV. ALLERGIES: NO KNOWN ALLERGIES TO MEDICATIONS. MEDICATIONS: Current medications include: 1. Apresoline 50 p.o. t.i.d. with meals. 2. Aspirin 81 p.o. daily. 3. Coreg 25 p.o. b.i.d. 4. Crestor 20 mg at bedtime. 5. Imdur 60 p.o. daily. 6. Norvasc 10 daily. 7. Plavix 75 daily. 8. Protonix 40 b.i.d. 9. Levemir 35 subcu b.i.d. 10.NovoLog 17 units subcu t.i.d. with meals and sliding scale insulin before ADMIT: 08/25/2016 RM/LOC: 408 [facility] MR#: [id number] [address] [place] [id number] RACHAEL CARMONA [facility] [place] [address] Consultation SEX: F AGE: 41 : 1975 every meal and every night. 11.Heparin drip per protocol. 12.Lasix 80 mg IV b.i.d. FAMILY HISTORY: Noncontributory. SOCIAL HISTORY: Rachael reports, she follows diabetic diet. Her blood sugars are over 300 though. Drinks coffee on a regular basis, rare alcohol use, quit smoking after a 20 year history of a half a pack a day. REVIEW OF SYSTEMS: GENERAL: Denies increased fatigue, recent fever, chills, or sweats. Her weight is unchanged from June. EYES: Denies double vision, blurred vision, cataracts, or glaucoma. ENT: Denies hearing loss or problems with nose, mouth or throat. PULMONARY: Increased shortness of breath on admission, no hemoptysis. GASTROINTESTINAL: Denies heartburn or difficulty swallowing. No change in bowel habits. Denies dark or bloody stools. No history of ulcers, hiatal hernia, or gallbladder or liver disease. GENITOURINARY: Chronic kidney disease stage 4. No hematuria. MUSCULOSKELETAL: Denies history of arthritis or gout. Denies muscle or joint pains. ENDOCRINE: History of diabetes. Denies thyroid issues. HEMATOLOGIC: Has chronic anemia. Hemoglobin currently is 8.2. NEUROLOGIC: Denies chronic headaches, dizziness, syncope, stroke, seizures or numbness or tingling. PSYCHIATRIC: Denies history of mental illness or feelings of depression. PHYSICAL EXAMINATION: VITAL SIGNS: Blood pressure 155/88, heart rate 98, respirations 12, temperature 97.3, oxygenation 93% on room air. SKIN: Basye, warm and dry. EYES: Sclerae clear. No xanthelasmas. ENT: Oral mucosa is pink and moist. No jugular venous distention or carotid bruits. CHEST: Respirations are even and unlabored. Lungs are clear to auscultation. HEART: Regular rate and rhythm. Normal S1, S2. No murmurs, rubs or gallops. ABDOMEN: Soft and nontender. MUSCULOSKELETAL: Gait is normal. EXTREMITIES: Peripheral pulses palpable. No clubbing, cyanosis or edema. PSYCHIATRIC: Alert and oriented. Mood and affect are appropriate. DIAGNOSTIC DATA: V/Q scan on 08/26, showed low probability for PE. Chest x- ray showed bibasilar opacities with trace pleural effusion. Sodium 129, potassium 4.5, BUN 34, creatinine of 3.6, glucose 579, total cholesterol 118, triglycerides 134, HDL 35, LDL 56, magnesium 2.1. CK 88, MB 1.0, troponin 0.086 on third set. ProBNP 12,261. White blood cell count 16.1, hemoglobin 8.2, hematocrit 25.6, and platelets 381. ASSESSMENT AND PLAN: ADMIT: 08/25/2016 RM/LOC: 408 [facility] MR#: [id number] [address] [place] [address] [place], [place] [address] RACHAEL CARMONA [address] [place] [address] Consultation SEX: F AGE: 41 : 1975 1. Chest pain. 2. Coronary disease. 3. Abnormal troponin, chronic. 4. Chronic renal insufficiency. 5. Shortness of breath. Rachael's troponin elevation is normal for her. Her baseline troponin is around 0.3. She is currently in 0.086. I will discontinue her heparin drip at this time. She reports that she is already scheduled for stress test and further cardiac evaluation next week with her primary senior net web developer, Dr. West. From my perspective, she is okay to discharge when okay with primary care. Her EKG is unchanged from previous EKGs. Thank you for the consultation. "I have read and agree with the documentation that has been completed regarding this visit. By signing this record, I attest that the documentation was completed in my physical presence and is an accurate record of the encounter." Bety Salazar RN / Madai March MD / wallace JOB #: [id number] CC: Guy Malhotra, Attending Physician Guy Malhotra, Family Physician
[2016-11-07] MEDS ORDERED: LASIX DPS20 MG PO (13:39)
[2016-11-07] MEDS ORDERED: NITROSTAT0.4 MG SL (13:39)
[2016-11-07] MEDS ORDERED: WELLBUTRIN SR150 M1 PO (13:40)
[2016-11-07] MEDS ORDERED: APRESOLINE-DPS50 MG PO (13:40)
[2016-11-07] MEDS ORDERED: MONTELUKAST SOD10 MG PO (13:40)
[2016-11-07] MEDS ORDERED: CRESTOR10 MG PO (13:40)
[2016-11-07] MEDS ORDERED: CETIRIZINE HCL5 MG PO (13:41)
[2016-11-07] MEDS ORDERED: PLAVIX75 MG PO (13:41)
[2016-11-07] MEDS ORDERED: ISOSORBIDE MONO60 MG PO (13:41)
[2016-11-07] MEDS ORDERED: CARVEDILOL25 MG PO (13:41)
[2016-11-07] MEDS ORDERED: HUMALOG100 UNIT/1 SQ (13:42)
[2016-11-07] MEDS ORDERED: AMBIEN DPS10 MG PO (13:42)
[2016-11-07] MEDS ORDERED: LANTUS100 UNITS/ SQ (13:42)
[2016-11-07] MEDS ORDERED: IRON325 M1 PO (13:43)
[2016-11-07] MEDS ORDERED: NEXIUM20 M1 PO (13:43)
[2016-11-07] MEDS ORDERED: ASPIR 8181 MG PO (13:43)
[2016-11-07] MEDS ORDERED: PROVENTIL HFA6.7 GM IH (13:43)
== END 2016-08-26 11:50 | disposition home or self-care (01) | DRG 291 ==
LOC: ER 17:01 → 4PCU 19:00
PROVIDERS: ADMIT Family Medicine
PROC: 30233N1 Transfusion of Nonautologous Red Blood Cells into Peripheral Vein, Percutaneous Approach (ICD-10-PCS; principal; 2016-08-25)
DX: I13.0 Hypertensive heart and chronic kidney disease with heart failure and stage 1 through stage 4 chronic kidney disease, or unspecified chronic kidney disease (principal); I50.23 Acute on chronic systolic (congestive) heart failure; E11.22 Type 2 diabetes mellitus with diabetic chronic kidney disease; N17.9 Acute kidney failure, unspecified; N18.4 Chronic kidney disease, stage 4 (severe); E11.65 Type 2 diabetes mellitus with hyperglycemia; J44.9 Chronic obstructive pulmonary disease, unspecified; E78.5 Hyperlipidemia, unspecified; D64.9 Anemia, unspecified; E66.9 Obesity, unspecified; I25.119 Atherosclerotic heart disease of native coronary artery with unspecified angina pectoris; R79.89 Other specified abnormal findings of blood chemistry; K21.9 Gastro-esophageal reflux disease without esophagitis; Z87.891 Personal history of nicotine dependence; Z79.4 Long term (current) use of insulin; Z82.49 Family history of ischemic heart disease and other diseases of the circulatory system; Z91.19 Patient's noncompliance with other medical treatment and regimen; I25.2 Old myocardial infarction; Z68.38 Body mass index [BMI] 38.0-38.9, adult